=== PATIENT | male | born 1990 | race Caucasian/White ===

== ENCOUNTER 2018-11-16 20:56 | Emergency (ER) | payer BC ==
[2018-11-16 22:12] LABS: #Basophils 0.1 thou/uL (0.0-0.2); #Eosinphils 0.4 thou/uL (0.0-0.7); #Lymphocytes 2.7 thou/uL (1.20-3.40); #Monocytes 0.8 thou/uL (0.11-0.59); #Neutrophils 4.8 thou/uL (1.40-6.50); %Basophils 0.7 % (0.0-1.0); %Eosinophils 4.9 % (0.0-10.0); %Lymphocytes 30.9 % (21.0-51.0); %Neutrophils 54.5 % (42.0-75.0); Hemoglobin 15.8 g/dL (14.0-18.0); Mean Corpuscular HGB CONC 34.3 g/dL (32.0-36.0); Mean Corpuscular Hemoglobin 31.2 pg (27.0-31.0); Mean Platelet Volume 8.7 fL (7.4-10.4); Platelet Count 249 thou/uL (130-400); RBC Distribution Width 12.1 % (11.5-14.5); Red Blood Cell (RBC) Count 5.07 mill/uL (4.70-6.10); White Blood Cell (WBC) Count 8.8 thou/uL (4.8-10.8)
[2018-11-16 22:27] LABS: ALT (SGPT) 23 U/L (8-55); AST (SGOT) 21 U/L (5-34); Albumin 4.2 g/dL (3.5-5.0); Alkaline Phosphatase 68 U/L (40-150); Anion Gap 17 mmol/L (10-20); BUN (Urea Nitrogen) 12 mg/dL (8.9-20.6); Bilirubin, Total 0.2 mg/dL (0.2-1.2); CK (CPK) 71 U/L (30-200); Calc. Creatinine Clearance 0 mL/min (70-130); Calcium 9.6 mg/dL (7.8-10.44); Carbon Dioxide 20 mmol/L (22-29); Chloride 106 mmol/L (98-107); Estimated GFR-MDRD Greater than 90; Globulin 3.5 g/dL (2.4-3.5); Glucose 120 mg/dL (70-105); Potassium 3.9 mmol/L (3.5-5.1); Protein, Total 7.7 g/dL (6.0-8.3); Sodium 139 mmol/L (136-145)
[2018-11-16] MEDS ORDERED: Ondansetron ODT 8 MG TAB ONE ×2 (22:33→22:41)
[2018-11-16] MEDS ORDERED: Ondansetron PF 4 MG/2 ML Vial ONE (22:41)
== END 2018-11-17 00:10 | disposition home or self-care (01) ==
LOC: ERS 20:56
DX: K52.9 Noninfective gastroenteritis and colitis, unspecified (principal); E86.0 Dehydration; I10 Essential (primary) hypertension; F17.220 Nicotine dependence, chewing tobacco, uncomplicated; Z79.899 Other long term (current) drug therapy
CPT/HCPCS: 36415; 80053; 82550; 85025; 96361; 96374; J2405

== ENCOUNTER 2019-10-06 09:20 | Emergency (ER) | payer SELFPAY ==
[2019-10-06] MEDS ORDERED: Nitroglycerin 2% Ointment 1 INCH/1 GM Packet ONE (09:58)
[2019-10-06] MEDS ORDERED: Aspirin Chewable 81 MG TAB ONE (09:58)
[2019-10-06] MEDS ORDERED: Ondansetron PF 4 MG/2 ML Vial ONE (09:58)
[2019-10-06 10:03] LABS: Hemoglobin 15.7 g/dL (14.0-18.0); Mean Corpuscular HGB CONC 33.6 g/dL (32.0-36.0); Mean Corpuscular Volume 89.3 fL (78.0-98.0); Mean Platelet Volume 8.4 fL (7.4-10.4); Platelet Count 164 thou/uL (130-400); RBC Distribution Width 11.9 % (11.5-14.5); Red Blood Cell (RBC) Count 5.24 mill/uL (4.70-6.10); White Blood Cell (WBC) Count 5.2 thou/uL (4.8-10.8)
[2019-10-06 10:20] LABS: Band 3 % (5-11); Eosinophils 5 % (0-10); Lymphocytes 34 % (21-51); MDiff Complete? YES; Metamyelocyte 2 % (0-0); Monocytes 6 % (0-10); Neutrophil 32 % (42-75); Platelet Morphology Comment Appears Adequate; RBC Morphology Normal; Reactive Lymphocytes 18 % (0-10)
--- NOTE | 2019-10-06 10:21 | RAD ---
Exam: Chest one view HISTORY:Chest pain Comparison: 09/03/2010 FINDINGS: Cardiac silhouette: Normal Aorta: Unremarkable Pulmonary vessels: Normal Costophrenic angles: Clear LUNGS: No masses or consolidation. Pneumothorax: None Osseous abnormalities: None IMPRESSION: No acute cardiopulmonary process.
[2019-10-06 10:28] LABS: ALT (SGPT) 57 U/L (8-55); AST (SGOT) 34 U/L (5-34); Albumin 4.2 g/dL (3.5-5.0); Alkaline Phosphatase 78 U/L (40-110); Anion Gap 13 mmol/L (10-20); BUN (Urea Nitrogen) 16 mg/dL (8.9-20.6); Bilirubin, Total 0.6 mg/dL (0.2-1.2); CK (CPK) 39 U/L (30-200); Calc. Creatinine Clearance 0 mL/min (70-130); Calcium 9.4 mg/dL (7.8-10.44); Carbon Dioxide 24 mmol/L (22-29); Chloride 103 mmol/L (98-107); Estimated GFR-MDRD Greater than 90; Globulin 3.5 g/dL (2.4-3.5); Glucose 109 mg/dL (70-105); Lipase 54 U/L (8-78); Potassium 4.1 mmol/L (3.5-5.1); Protein, Total 7.7 g/dL (6.0-8.3); Sodium 136 mmol/L (136-145)
[2019-10-06 10:36] LABS: Bilirubin Negative (Negative); Blood, Urine Negative (Negative); Clarity Clear (Clear); Glucose, Urine (Dipstick) Normal (Negative); Ketone, Urine Negative (Negative); Leukocyte Negative Leu/uL (Negative); Nitrite Negative (Negative); Protein, Urine (Dipstick) 20 mg/dL (Neg-Trace); Specific Gravity, Urine 1.035 (1.002-1.036); Urobilinogen Normal mg/dL (Less than 2); pH, Urine 5.5 (5.0-9.0)
== END 2019-10-06 11:00 | disposition home or self-care (01) ==
LOC: ERS 09:20
DX: I10 Essential (primary) hypertension (principal); R07.9 Chest pain, unspecified; F17.220 Nicotine dependence, chewing tobacco, uncomplicated
CPT/HCPCS: 71045; 80053; 81003; 82550; 83690; 84484; 85025; 87086; 93005; 96361; 96374; J2405

== ENCOUNTER 2019-10-15 21:28 | Emergency (ER) | payer SELFPAY ==
[~2019-10-15 21:28] MED LIST: Iopamidol-370 76% 500 ML 1 ML ONE
[2019-10-15] MEDS ORDERED: Ketorolac Tromethamine 30 MG/ML VIAL ONE (22:48)
[2019-10-15] MEDS ORDERED: Ondansetron PF 4 MG/2 ML Vial ONE (22:48)
[2019-10-15 22:58] LABS: Hemoglobin 14.2 g/dL (14.0-18.0); Mean Corpuscular HGB CONC 33.4 g/dL (32.0-36.0); Mean Corpuscular Hemoglobin 30.6 pg (27.0-31.0); Mean Corpuscular Volume 91.7 fL (78.0-98.0); Mean Platelet Volume 7.6 fL (7.4-10.4); Platelet Count 189 thou/uL (130-400); RBC Distribution Width 12.2 % (11.5-14.5); Red Blood Cell (RBC) Count 4.64 mill/uL (4.70-6.10); White Blood Cell (WBC) Count 8.4 thou/uL (4.8-10.8)
[2019-10-15 23:08] LABS: ALT (SGPT) 76 U/L (8-55); AST (SGOT) 44 U/L (5-34); Alkaline Phosphatase 76 U/L (40-110); Anion Gap 12 mmol/L (10-20); BUN (Urea Nitrogen) 12 mg/dL (8.9-20.6); Bilirubin, Total 0.4 mg/dL (0.2-1.2); CK (CPK) 51 U/L (30-200); Calc. Creatinine Clearance 0 mL/min (70-130); Calcium 9.2 mg/dL (7.8-10.44); Carbon Dioxide 25 mmol/L (22-29); Chloride 104 mmol/L (98-107); Estimated GFR-MDRD 90; Globulin 3.3 g/dL (2.4-3.5); Glucose 96 mg/dL (70-105); Lipase 21 U/L (8-78); Potassium 4.3 mmol/L (3.5-5.1); Protein, Total 7.3 g/dL (6.0-8.3); Sodium 137 mmol/L (136-145)
[2019-10-15 23:13] LABS: Band 4 % (5-11); Eosinophils 4 % (0-10); Lymphocytes 55 % (21-51); MDiff Complete? YES; Monocytes 13 % (0-10); Neutrophil 23 % (42-75)
--- NOTE | 2019-10-16 00:28 | RAD ---
PORTABLE CHEST: Date: 10/15/2019 HISTORY: Cough. FINDINGS: Lungs are clear. Heart and mediastinum appear normal. Vascular markings normal. IMPRESSION: No acute findings. POS: AGW
--- NOTE | 2019-10-16 00:29 | CT ---
CT ABDOMEN AND PELVIS WITH IV CONTRAST: Date: 10/15/2019 INDICATION: Abdominal pain. Comparison made to prior CT abdomen and pelvis of 05/28/2011. FINDINGS: Lung bases clear. Liver unremarkable. There is splenomegaly. Spleen measures up to 20 cm AP dimension. Pancreas unremarkable. Adrenal glands normal. Kidneys unremarkable. Small bowel loops normal. The appendix is not identified. The patient may be post appendectomy. There is stool throughout the c olon. Scattered diverticula seen in the left colon and sigmoid. No evidence of diverticulitis. No shayne nopathy. No free fluid. Aorta appears normal. Osseous structures unremarkable. The umbilicus appears unremarkable by CT. IMPRESSION: 1. Splenomegaly. 2. Otherwise no acute process. POS: AGW
== END 2019-10-15 23:45 | disposition home or self-care (01) ==
LOC: ERS 21:28
DX: R16.1 Splenomegaly, not elsewhere classified (principal); R10.9 Unspecified abdominal pain; I10 Essential (primary) hypertension; F32.9 Major depressive disorder, single episode, unspecified; F90.9 Attention-deficit hyperactivity disorder, unspecified type; F17.220 Nicotine dependence, chewing tobacco, uncomplicated; Z79.899 Other long term (current) drug therapy
CPT/HCPCS: 36415; 71045; 74177; 80053; 82550; 83690; 84484; 85025; 93005; 96361; 96374; 96375; J1885; J2405; Q9967

== ENCOUNTER 2020-06-27 10:06 | Emergency (ER) | payer SELFPAY | END 2020-06-27 11:51 | disposition home or self-care (01) | LOC: ERS 10:06 | DX: M65.4 Radial styloid tenosynovitis [de Quervain] (principal); I10 Essential (primary) hypertension; F17.220 Nicotine dependence, chewing tobacco, uncomplicated; Z79.899 Other long term (current) drug therapy ==

== ENCOUNTER 2020-09-25 16:56 | Emergency (ER) | payer SELFPAY ==
[2020-09-25 17:50] LABS: #Basophils 0.1 thou/uL (0.0-0.2); #Eosinphils 0.3 thou/uL (0.0-0.7); #Lymphocytes 2.9 thou/uL (1.20-3.40); #Monocytes 0.9 thou/uL (0.11-0.59); %Basophils 1.1 % (0.0-1.0); %Eosinophils 3.3 % (0.0-10.0); %Lymphocytes 35.5 % (21.0-51.0); %Monocytes 11.4 % (0.0-10.0); %Neutrophils 48.8 % (42.0-75.0); Hemoglobin 14.8 g/dL (14.0-18.0); Mean Corpuscular HGB CONC 34.8 g/dL (32.0-36.0); Mean Corpuscular Hemoglobin 31.6 pg (27.0-31.0); Mean Corpuscular Volume 90.8 fL (78.0-98.0); Mean Platelet Volume 8.3 fL (7.4-10.4); Platelet Count 244 thou/uL (130-400); RBC Distribution Width 11.9 % (11.5-14.5); Red Blood Cell (RBC) Count 4.68 mill/uL (4.70-6.10); White Blood Cell (WBC) Count 8.2 thou/uL (4.8-10.8)
[2020-09-25 18:14] LABS: ALT (SGPT) 45 U/L (8-55); AST (SGOT) 35 U/L (5-34); Albumin 4.3 g/dL (3.5-5.0); Alkaline Phosphatase 74 U/L (40-110); Anion Gap 17 mmol/L (10-20); BUN (Urea Nitrogen) 15 mg/dL (8.9-20.6); Bilirubin, Total 0.3 mg/dL (0.2-1.2); Calc. Creatinine Clearance 0 mL/min (70-130); Calcium 9.7 mg/dL (7.8-10.44); Carbon Dioxide 20 mmol/L (22-29); Chloride 107 mmol/L (98-107); Globulin 3.2 g/dL (2.4-3.5); Glucose 116 mg/dL (70-105); Potassium 3.6 mmol/L (3.5-5.1); Protein, Total 7.5 g/dL (6.0-8.3); Sodium 140 mmol/L (136-145)
[2020-09-25] MEDS ORDERED: Aspirin Chewable 81 MG TAB ONE (18:37)
[2020-09-25 20:53] LABS: Troponin I Less than 0.010 ng/mL (< 0.028)
[2020-09-25] MEDS ORDERED: Ketorolac Tromethamine 30 MG/ML VIAL ONE (21:21)
== END 2020-09-25 21:50 | disposition home or self-care (01) ==
LOC: ERS 16:56
DX: T67.5XXA Heat exhaustion, unspecified, initial encounter (principal); R07.89 Other chest pain; I10 Essential (primary) hypertension; F17.220 Nicotine dependence, chewing tobacco, uncomplicated; Z79.899 Other long term (current) drug therapy
CPT/HCPCS: 36415; 71045; 80053; 82550; 84484; 85025; 93005; 96374; J1885

== ENCOUNTER 2020-11-19 07:44 | Emergency (ER) | payer SELFPAY ==
[2020-11-19] MEDS ORDERED: Ketorolac Tromethamine 30 MG/ML VIAL ONE (08:43)
[2020-11-19 08:49] LABS: #Basophils 0.1 thou/uL (0.0-0.2); #Eosinphils 0.3 thou/uL (0.0-0.7); #Lymphocytes 2.5 thou/uL (1.20-3.40); #Monocytes 0.8 thou/uL (0.11-0.59); #Neutrophils 2.8 thou/uL (1.40-6.50); %Basophils 0.8 % (0.0-1.0); %Lymphocytes 38.4 % (21.0-51.0); %Monocytes 12.3 % (0.0-10.0); %Neutrophils 44.4 % (42.0-75.0); Hemoglobin 14.9 g/dL (14.0-18.0); Mean Corpuscular HGB CONC 33.4 g/dL (32.0-36.0); Mean Corpuscular Hemoglobin 30.5 pg (27.0-31.0); Mean Corpuscular Volume 91.4 fL (78.0-98.0); Mean Platelet Volume 7.8 fL (7.4-10.4); Platelet Count 234 thou/uL (130-400); RBC Distribution Width 11.6 % (11.5-14.5); Red Blood Cell (RBC) Count 4.87 mill/uL (4.70-6.10); White Blood Cell (WBC) Count 6.4 thou/uL (4.8-10.8)
[2020-11-19 09:13] LABS: ALT (SGPT) 26 U/L (8-55); AST (SGOT) 14 U/L (5-34); Alkaline Phosphatase 72 U/L (40-110); Anion Gap 12 mmol/L (10-20); BUN (Urea Nitrogen) 11 mg/dL (8.9-20.6); Bilirubin, Total 0.3 mg/dL (0.2-1.2); Calc. Creatinine Clearance 0 mL/min (70-130); Calcium 9.3 mg/dL (7.8-10.44); Carbon Dioxide 25 mmol/L (22-29); Chloride 104 mmol/L (98-107); Globulin 3.4 g/dL (2.4-3.5); Glucose 103 mg/dL (70-105); Lipase 10 U/L (8-78); Potassium 4.2 mmol/L (3.5-5.1); Protein, Total 7.4 g/dL (6.0-8.3); Sodium 137 mmol/L (136-145)
== END 2020-11-19 10:09 | disposition home or self-care (01) ==
LOC: ERS 07:44
DX: R07.89 Other chest pain (principal); Z76.0 Encounter for issue of repeat prescription; I10 Essential (primary) hypertension; F17.220 Nicotine dependence, chewing tobacco, uncomplicated
CPT/HCPCS: 71045; 80053; 83690; 84484; 85025; 93005; 94760; 96374; J1885

== ENCOUNTER 2021-03-25 11:17 | Emergency (ER) | payer SELFPAY ==
[2021-03-25] MEDS ORDERED: Acetaminophen 500 MG TAB ONE (11:28)
[2021-03-25] MEDS ORDERED: Ibuprofen 800 MG TAB ONE (11:28)
[2021-03-25] MEDS ORDERED: Dexamethasone 10 MG/ML VIAL ONE (11:52)
[2021-03-25 12:02] LABS: Hemoglobin 15.9 g/dL (14.0-18.0); Mean Corpuscular HGB CONC 34.2 g/dL (32.0-36.0); Mean Corpuscular Hemoglobin 31.3 pg (27.0-31.0); Mean Corpuscular Volume 91.5 fL (78.0-98.0); Mean Platelet Volume 7.9 fL (7.4-10.4); Platelet Count 211 thou/uL (130-400); RBC Distribution Width 11.9 % (11.5-14.5); Red Blood Cell (RBC) Count 5.08 mill/uL (4.70-6.10); White Blood Cell (WBC) Count 7.9 thou/uL (4.8-10.8)
[2021-03-25 12:22] LABS: Band 14 % (5-11); Lymphocytes 19 % (21-51); MDiff Complete? YES; Monocytes 20 % (0-10); Neutrophil 38 % (42-75); Platelet Morphology Comment Appears Adequate; RBC Morphology Normal; Reactive Lymphocytes 9 % (0-10)
[2021-03-25 12:27] LABS: ALT (SGPT) 22 U/L (8-55); AST (SGOT) 18 U/L (5-34); Albumin 4.2 g/dL (3.5-5.0); Alkaline Phosphatase 73 U/L (40-110); Anion Gap 14 mmol/L (10-20); BUN (Urea Nitrogen) 10 mg/dL (8.9-20.6); Bilirubin, Total 0.4 mg/dL (0.2-1.2); CK (CPK) 64 U/L (30-200); Calc. Creatinine Clearance 0 mL/min (70-130); Calcium 9.4 mg/dL (7.8-10.44); Carbon Dioxide 23 mmol/L (22-29); Chloride 102 mmol/L (98-107); Globulin 3.3 g/dL (2.4-3.5); Glucose 105 mg/dL (70-105); Lipase 11 U/L (8-78); Potassium 4.3 mmol/L (3.5-5.1); Protein, Total 7.5 g/dL (6.0-8.3); Sodium 135 mmol/L (136-145)
[2021-03-25 17:42] LABS: SARS-CoV-2 PCR by NAA Not Detected (NotDetected)
== END 2021-03-25 13:58 | disposition home or self-care (01) ==
LOC: ERS 11:17
DX: R05.9 Cough, unspecified (principal); I10 Essential (primary) hypertension; J45.909 Unspecified asthma, uncomplicated; F17.220 Nicotine dependence, chewing tobacco, uncomplicated; Z20.822 Contact with and (suspected) exposure to COVID-19; Z79.899 Other long term (current) drug therapy
CPT/HCPCS: 36415; 71045; 80053; 82550; 83605; 83690; 83880; 84484; 85025; 85379; 87040; 87804; 93005; 96374; J1100; U0003; U0005

== ENCOUNTER 2021-08-13 09:25 | Emergency (ER) | payer SELFPAY ==
[2021-08-13 11:28] LABS: #Basophils 0.1 thou/uL (0.0-0.2); #Eosinphils 0.3 thou/uL (0.0-0.7); #Lymphocytes 2.5 thou/uL (1.20-3.40); #Monocytes 0.7 thou/uL (0.11-0.59); #Neutrophils 3.1 thou/uL (1.40-6.50); %Eosinophils 4.2 % (0.0-10.0); %Lymphocytes 37.8 % (21.0-51.0); %Monocytes 10.2 % (0.0-10.0); %Neutrophils 46.8 % (42.0-75.0); Hemoglobin 16.2 g/dL (14.0-18.0); Mean Corpuscular Hemoglobin 30.9 pg (27.0-31.0); Mean Corpuscular Volume 93.8 fL (78.0-98.0); Mean Platelet Volume 8.3 fL (7.4-10.4); Platelet Count 222 thou/uL (130-400); RBC Distribution Width 11.9 % (11.5-14.5); Red Blood Cell (RBC) Count 5.25 mill/uL (4.70-6.10); White Blood Cell (WBC) Count 6.6 thou/uL (4.8-10.8)
[2021-08-13] MEDS ORDERED: Ondansetron PF 4 MG/2 ML Vial ONE (11:43)
[2021-08-13] MEDS ORDERED: Ketorolac Tromethamine 30 MG/ML VIAL ONE (11:43)
[2021-08-13 11:49] LABS: ALT (SGPT) 27 U/L (8-55); AST (SGOT) 20 U/L (5-34); Albumin 4.2 g/dL (3.5-5.0); Alkaline Phosphatase 70 U/L (40-110); Anion Gap 15 mmol/L (10-20); BUN (Urea Nitrogen) 15 mg/dL (8.9-20.6); Bilirubin, Total 0.6 mg/dL (0.2-1.2); Calc. Creatinine Clearance 0 mL/min (70-130); Calcium 9.8 mg/dL (7.8-10.44); Carbon Dioxide 25 mmol/L (22-29); Chloride 103 mmol/L (98-107); Globulin 3.6 g/dL (2.4-3.5); Glucose 88 mg/dL (70-105); Lipase 12 U/L (8-78); Potassium 4.6 mmol/L (3.5-5.1); Protein, Total 7.8 g/dL (6.0-8.3); Sodium 138 mmol/L (136-145)
== END 2021-08-13 13:20 | disposition home or self-care (01) ==
LOC: ERS 09:25
DX: R11.2 Nausea with vomiting, unspecified (principal); I10 Essential (primary) hypertension; F17.220 Nicotine dependence, chewing tobacco, uncomplicated; Z79.899 Other long term (current) drug therapy
CPT/HCPCS: 36415; 80053; 83690; 85025; 87804; 96361; 96374; 96375; J1885; J2405

== ENCOUNTER 2022-01-13 13:43 | Emergency (ER) | payer SELFPAY ==
[2022-01-13 14:21] LABS: #Basophils 0.1 thou/uL (0.0-0.2); #Eosinphils 0.3 thou/uL (0.0-0.7); #Lymphocytes 2.9 thou/uL (1.20-3.40); #Neutrophils 3.7 thou/uL (1.40-6.50); %Basophils 0.6 % (0.0-1.0); %Lymphocytes 36.1 % (21.0-51.0); %Monocytes 12.3 % (0.0-10.0); Hemoglobin 15.4 g/dL (14.0-18.0); Mean Corpuscular HGB CONC 32.9 g/dL (32.0-36.0); Mean Corpuscular Hemoglobin 30.9 pg (27.0-31.0); Mean Corpuscular Volume 93.7 fL (78.0-98.0); Mean Platelet Volume 8.6 fL (7.4-10.4); Platelet Count 245 thou/uL (130-400); RBC Distribution Width 11.9 % (11.5-14.5); Red Blood Cell (RBC) Count 4.99 mill/uL (4.70-6.10)
[2022-01-13 14:49] LABS: ALT (SGPT) 49 U/L (8-55); AST (SGOT) 30 U/L (5-34); Albumin 4.3 g/dL (3.5-5.0); Alkaline Phosphatase 59 U/L (40-110); Anion Gap 11 mmol/L (10-20); BUN (Urea Nitrogen) 17 mg/dL (8.9-20.6); Bilirubin, Total 0.4 mg/dL (0.2-1.2); Calc. Creatinine Clearance 0 mL/min (70-130); Calcium 9.6 mg/dL (7.8-10.44); Carbon Dioxide 26 mmol/L (22-29); Chloride 104 mmol/L (98-107); Estimated GFR 110; Globulin 3.3 g/dL (2.4-3.5); Glucose 97 mg/dL (70-105); Lipase 12 U/L (8-78); Potassium 4.7 mmol/L (3.5-5.1); Protein, Total 7.6 g/dL (6.0-8.3); Sodium 136 mmol/L (136-145)
[2022-01-13] MEDS ORDERED: Iopamidol 370 76% 100 ML VIAL ONE (14:56)
[2022-01-13 18:12] LABS: Bacteria/HPF None Seen HPF (None Seen); Bilirubin Negative (Negative); Blood, Urine Negative (Negative); Clarity Clear (Clear); Glucose, Urine (Dipstick) Normal (Negative); Ketone, Urine Negative (Negative); Leukocyte 25 Leu/uL (Negative); Nitrite Negative (Negative); Protein, Urine (Dipstick) Negative (Neg-Trace); RBC/HPF 0-3 HPF (0-3); Specific Gravity, Urine 1.027 (1.002-1.036); Squamous Epithelial 0-3 HPF (0-3); Urobilinogen Normal mg/dL (Less than 2)
[2022-01-13] MEDS ORDERED: Ondansetron PF 4 MG/2 ML Vial ONE (18:28)
[2022-01-13] MEDS ORDERED: Morphine 4 MG/ML VIAL ONE (18:28)
[2022-01-13] MEDS ORDERED: Promethazine HCl 12.5 MG in Sodium Chloride 0.9% 50 ML IVPB SCH (19:45)
== END 2022-01-13 19:57 | disposition home or self-care (01) ==
LOC: ERS 13:43
DX: K57.30 Diverticulosis of large intestine without perforation or abscess without bleeding (principal); K76.0 Fatty (change of) liver, not elsewhere classified; L98.8 Other specified disorders of the skin and subcutaneous tissue; Z79.899 Other long term (current) drug therapy; I10 Essential (primary) hypertension
CPT/HCPCS: 36415; 74177; 76705; 80053; 81003; 81015; 83690; 85025; 96361; 96374; 96375; J2270; J2405; J2550; Q9967

== ENCOUNTER 2022-09-10 08:46 | Emergency (ER) | payer OTHER ==
[2022-09-10] MEDS ORDERED: diphenhydrAMINE 50 MG/ML VIAL ONE (09:27)
[2022-09-10] MEDS ORDERED: Metoclopramide HCl 10 MG/2 ML VIAL ONE (09:27)
[2022-09-10 09:51] LABS: #Basophils 0.1 thou/uL (0.0-0.2); #Eosinphils 0.2 thou/uL (0.0-0.7); #Monocytes 0.8 thou/uL (0.11-0.59); #Neutrophils 3.8 thou/uL (1.40-6.50); %Basophils 0.7 % (0.0-1.0); %Eosinophils 3.1 % (0.0-10.0); %Lymphocytes 28.5 % (21.0-51.0); %Monocytes 11.1 % (0.0-10.0); Hemoglobin 15.6 g/dL (14.0-18.0); Mean Corpuscular HGB CONC 33.1 g/dL (32.0-36.0); Mean Corpuscular Hemoglobin 29.8 pg (27.0-31.0); Mean Corpuscular Volume 90.1 fl (78.0-98.0); Mean Platelet Volume 10.2 fL (7.4-10.4); Platelet Count 310 10x3/uL (130-400); RBC Distribution Width 12.3 % (11.5-14.5); Red Blood Cell (RBC) Count 5.23 mill/uL (4.70-6.10); White Blood Cell (WBC) Count 6.8 10x3/uL (4.8-10.8)
[2022-09-10 09:57] LABS: Amphetamine Not Detected (NotDetected); Barbiturates Screen Not Detected (NotDetected); Benzodiazepine Screen Not Detected (NotDetected); Cocaine Metabolite Screen Not Detected (NotDetected); Methadone Not Detected (NotDetected); Methamphetamine Not Detected (NotDetected); Opiate Screen Not Detected (NotDetected); Oxycodone Screen Not Detected (NotDetected); Phencyclidine (PCP) Not Detected (NotDetected); THC/Cannabinoid Screen Detected (NotDetected); Tricyclic Screen Not Detected (NotDetected)
[2022-09-10 10:14] LABS: ALT (SGPT) 59 U/L (8-55); AST (SGOT) 36 U/L (5-34); Albumin 4.3 g/dL (3.5-5.0); Alkaline Phosphatase 77 U/L (40-110); Anion Gap 14 mmol/L (10-20); BUN (Urea Nitrogen) 10 mg/dL (8.9-20.6); Bilirubin, Total 0.4 mg/dL (0.2-1.2); Calc. Creatinine Clearance 0 mL/min (70-130); Calcium 10.2 mg/dL (7.8-10.44); Carbon Dioxide 27 mmol/L (22-29); Chloride 99 mmol/L (98-107); Estimated GFR 119; Globulin 3.5 g/dL (2.4-3.5); Glucose 106 mg/dL (70-105); Lipase 9 U/L (8-78); Potassium 3.5 mmol/L (3.5-5.1); Protein, Total 7.8 g/dL (6.0-8.3); Sodium 136 mmol/L (136-145)
[2022-09-10] MEDS ORDERED: Magnesium 2 GM/50 ML BAG (IN WATER) ONE (10:54)
[2022-09-10] MEDS ORDERED: Acetaminophen 500 MG TAB ONE (10:54)
== END 2022-09-10 13:47 | disposition home or self-care (01) ==
LOC: ERS 08:46
DX: R51.9 Headache, unspecified (principal); R00.2 Palpitations; I10 Essential (primary) hypertension; F17.210 Nicotine dependence, cigarettes, uncomplicated; Z79.899 Other long term (current) drug therapy
CPT/HCPCS: 36415; 71045; 80053; 80306; 83690; 84436; 84443; 84480; 84484; 85025; 93005; 96365; 96367; 96375; J1200; J2765; J3475

== ENCOUNTER 2022-11-03 09:26 | Emergency (ER) | payer OTHER ==
[2022-11-03] MEDS ORDERED: Ketorolac Tromethamine 30 MG/ML VIAL ONE (10:11)
[2022-11-03 10:16] LABS: ALT (SGPT) 38 U/L (8-55); AST (SGOT) 23 U/L (5-34); Albumin 4.2 g/dL (3.5-5.0); Alkaline Phosphatase 72 U/L (40-110); Anion Gap 13 mmol/L (10-20); BUN (Urea Nitrogen) 17 mg/dL (8.9-20.6); Bilirubin, Total 0.5 mg/dL (0.2-1.2); Calc. Creatinine Clearance 0 mL/min (70-130); Calcium 9.7 mg/dL (7.8-10.44); Carbon Dioxide 23 mmol/L (22-29); Chloride 101 mmol/L (98-107); Estimated GFR 89; Globulin 3.4 g/dL (2.4-3.5); Glucose 95 mg/dL (70-105); Potassium 3.5 mmol/L (3.5-5.1); Protein, Total 7.6 g/dL (6.0-8.3); Sodium 133 mmol/L (136-145)
[2022-11-03 10:18] LABS: #Basophils 0.1 thou/uL (0.0-0.2); #Eosinphils 0.2 thou/uL (0.0-0.7); #Monocytes 0.9 thou/uL (0.11-0.59); #Neutrophils 3.3 thou/uL (1.40-6.50); %Basophils 0.7 % (0.0-1.0); %Eosinophils 2.7 % (0.0-10.0); %Lymphocytes 36.6 % (21.0-51.0); %Monocytes 12.3 % (0.0-10.0); %Neutrophils 47.3 % (42.0-75.0); Hematocrit 44.7 % (42.0-52.0); Hemoglobin 15.1 g/dL (14.0-18.0); Mean Corpuscular HGB CONC 33.8 g/dL (32.0-36.0); Mean Corpuscular Hemoglobin 29.7 pg (27.0-31.0); Mean Corpuscular Volume 87.8 fl (78.0-98.0); Mean Platelet Volume 10.5 fL (7.4-10.4); Platelet Count 282 10x3/uL (130-400); Red Blood Cell (RBC) Count 5.09 mill/uL (4.70-6.10); White Blood Cell (WBC) Count 7.1 10x3/uL (4.8-10.8)
[2022-11-03 12:18] LABS: Troponin I Less than 0.010 ng/mL (< 0.028)
== END 2022-11-03 12:38 | disposition home or self-care (01) ==
LOC: ERS 09:26
DX: R07.9 Chest pain, unspecified (principal); R42 Dizziness and giddiness; I10 Essential (primary) hypertension; F17.210 Nicotine dependence, cigarettes, uncomplicated
CPT/HCPCS: 36415; 71045; 80053; 84484; 85025; 85379; 93005; 94760; 96361; 96374; J1885

== ENCOUNTER 2022-11-17 09:28 | Observation (INO) | payer OTHER ==
[2022-11-17] MEDS ORDERED: Aspirin 325 MG TAB ONE (09:50)
[2022-11-17] MEDS ORDERED: Nitroglycerin 0.4 MG TAB 1 EACH ONE ×2 (09:50→09:51)
[2022-11-17 09:52] LABS: #Basophils 0.1 thou/uL (0.0-0.2); #Eosinphils 0.2 thou/uL (0.0-0.7); #Monocytes 0.8 thou/uL (0.11-0.59); #Neutrophils 3.6 thou/uL (1.40-6.50); %Basophils 0.7 % (0.0-1.0); %Eosinophils 2.7 % (0.0-10.0); %Lymphocytes 35.5 % (21.0-51.0); %Monocytes 10.9 % (0.0-10.0); %Neutrophils 49.8 % (42.0-75.0); Hematocrit 46.2 % (42.0-52.0); Hemoglobin 15.4 g/dL (14.0-18.0); Mean Corpuscular HGB CONC 33.3 g/dL (32.0-36.0); Mean Corpuscular Hemoglobin 30.1 pg (27.0-31.0); Mean Corpuscular Volume 90.2 fl (78.0-98.0); Mean Platelet Volume 10.4 fL (7.4-10.4); Platelet Count 296 10x3/uL (130-400); RBC Distribution Width 12.9 % (11.5-14.5); Red Blood Cell (RBC) Count 5.12 mill/uL (4.70-6.10); White Blood Cell (WBC) Count 7.2 10x3/uL (4.8-10.8)
[2022-11-17 10:15] LABS: ALT (SGPT) 26 U/L (8-55); AST (SGOT) 18 U/L (5-34); Albumin 4.5 g/dL (3.5-5.0); Alkaline Phosphatase 74 U/L (40-110); Anion Gap 13 mmol/L (10-20); BUN (Urea Nitrogen) 16 mg/dL (8.9-20.6); Bilirubin, Total 0.3 mg/dL (0.2-1.2); Calc. Creatinine Clearance 0 mL/min (70-130); Calcium 10.1 mg/dL (7.8-10.44); Carbon Dioxide 22 mmol/L (22-29); Chloride 106 mmol/L (98-107); Estimated GFR 108; Globulin 3.7 g/dL (2.4-3.5); Glucose 98 mg/dL (70-105); Lipase 7 U/L (8-78); Potassium 3.9 mmol/L (3.5-5.1); Protein, Total 8.2 g/dL (6.0-8.3); Sodium 137 mmol/L (136-145)
[2022-11-17 10:19] LABS: Troponin I Less than 0.010 ng/mL (< 0.028)
[2022-11-17] MEDS ORDERED: Iopamidol-370 76% 500 ML MDV (1 ML CHARGE) ONE (11:14)
[2022-11-17] MEDS ORDERED: Ondansetron PF 4 MG/2 ML Vial IVP PRN (11:33)
[2022-11-17] MEDS ORDERED: Senokot S 8.6-50 MG TAB PO PRN (11:33)
[2022-11-17] MEDS ORDERED: Acetaminophen 325 MG TAB PO PRN (11:33)
[2022-11-17] MEDS ORDERED: Bisacodyl 5 MG TAB PO PRN (11:33)
[2022-11-17] MEDS ORDERED: Bisacodyl 10 MG SUPP PR PRN (11:33)
[2022-11-17] MEDS ORDERED: Nitroglycerin 2% Ointment 1 INCH/1 GM Packet ONE (11:52)
[2022-11-17] MEDS: Sodium Chloride 0.9% 1,000 ML IV SCH ×2 (13:19→20:08)
[2022-11-17 14:15] LABS: Troponin I Less than 0.010 ng/mL (< 0.028)
[2022-11-17 17:41] LABS: Amphetamine Not Detected (NotDetected); Barbiturates Screen Not Detected (NotDetected); Benzodiazepine Screen Not Detected (NotDetected); Cocaine Metabolite Screen Not Detected (NotDetected); Methadone Not Detected (NotDetected); Methamphetamine Not Detected (NotDetected); Opiate Screen Not Detected (NotDetected); Oxycodone Screen Not Detected (NotDetected); Phencyclidine (PCP) Not Detected (NotDetected); THC/Cannabinoid Screen Detected (NotDetected); Tricyclic Screen Not Detected (NotDetected)
[2022-11-17 18:11] LABS: Troponin I Less than 0.010 ng/mL (< 0.028)
[2022-11-17] MEDS ORDERED: Atorvastatin Calcium 40 MG TAB PO SCH (21:00)
[2022-11-17 21:36] VITALS: BMI 48.6
[2022-11-18 05:34] LABS: #Basophils 0.1 thou/uL (0.0-0.2); #Eosinphils 0.3 thou/uL (0.0-0.7); #Monocytes 0.8 thou/uL (0.11-0.59); #Neutrophils 3.3 thou/uL (1.40-6.50); %Basophils 0.9 % (0.0-1.0); %Eosinophils 3.7 % (0.0-10.0); %Lymphocytes 36.3 % (21.0-51.0); %Monocytes 11.1 % (0.0-10.0); %Neutrophils 47.6 % (42.0-75.0); Hematocrit 42.2 % (42.0-52.0); Mean Corpuscular HGB CONC 33.2 g/dL (32.0-36.0); Mean Corpuscular Hemoglobin 30.6 pg (27.0-31.0); Mean Corpuscular Volume 92.1 fl (78.0-98.0); Mean Platelet Volume 10.6 fL (7.4-10.4); Platelet Count 232 10x3/uL (130-400); Red Blood Cell (RBC) Count 4.58 mill/uL (4.70-6.10)
[2022-11-18 05:40] LABS: Hemoglobin A1c 5.6 % (4.0-6.0)
[2022-11-18 06:03] LABS: ALT (SGPT) 20 U/L (8-55); AST (SGOT) 17 U/L (5-34); Albumin 3.7 g/dL (3.5-5.0); Alkaline Phosphatase 59 U/L (40-110); Anion Gap 12 mmol/L (10-20); BUN (Urea Nitrogen) 13 mg/dL (8.9-20.6); Bilirubin, Direct 0.2 mg/dL (0.1-0.3); Bilirubin, Total 0.4 mg/dL (0.2-1.2); Calc. Creatinine Clearance 342 mL/min (70-130); Calcium 9.2 mg/dL (7.8-10.44); Carbon Dioxide 23 mmol/L (22-29); Cardiac Risk 6.9 (Less than 4.5); Chloride 103 mmol/L (98-107); Cholesterol 179 mg/dl (< 200 Desired); Estimated GFR 122; Glucose 98 mg/dL (70-105); HDL Cholesterol 26 mg/dL (>60 Neg Risk); LDL Cholesterol, Calculated 122 mg/dL; Magnesium 1.6 mg/dL (1.6-2.6); Potassium 3.9 mmol/L (3.5-5.1); Protein, Total 6.6 g/dL (6.0-8.3); Sodium 134 mmol/L (136-145); Triglycerides 155 mg/dL (Less than 150)
[2022-11-18] MEDS ORDERED: Hydrochlorothiazide 25 MG TAB PO SCH (09:00)
[2022-11-18] MEDS ORDERED: Losartan 25 MG TAB PO SCH (09:00)
[2022-11-18] MEDS ORDERED: Aspirin Chewable 81 MG TAB PO SCH (09:00)
[2022-11-18] MEDS ORDERED: Losartan/Hydrochlorothiazide 100 mg/25 mg Tablet PO SCH (09:00)
[2022-11-18] MEDS ORDERED: Regadenoson 0.4 MG/5 ML SYRINGE ONE (10:26)
[2022-11-18 12:04] VITALS: BP 147/84; TEMP 98.6
[2022-11-18] MEDS: Sodium Chloride 0.9% 1,000 ML IV SCH (13:42)
== END 2022-11-18 14:10 | disposition left against medical advice (07) ==
LOC: ERS 09:28 → ERHOLD 11:33 → 2SW 19:01
PROVIDERS: ADMIT Family Medicine; ATTEND Internal Medicine
DX: R07.9 Chest pain, unspecified (principal); I10 Essential (primary) hypertension; R51.9 Headache, unspecified; R20.0 Anesthesia of skin; F17.210 Nicotine dependence, cigarettes, uncomplicated; F12.10 Cannabis abuse, uncomplicated; E78.5 Hyperlipidemia, unspecified; E66.9 Obesity, unspecified; Z68.42 Body mass index [BMI] 45.0-49.9, adult; Z79.899 Other long term (current) drug therapy; Z90.49 Acquired absence of other specified parts of digestive tract
CPT/HCPCS: 36415; 70450; 71045; 71275; 74174; 78451; 80048; 80053; 80061; 80076; 80306; 83036; 83690; 83735; 84443; 84484; 85025; 85379; 93005; 93017; 94760; A9500; G0378; J2785; J7050; Q9967

== ENCOUNTER 2023-01-15 10:57 | Inpatient (IN) | payer OTHER ==
[2023-01-15] MEDS ORDERED: Nitroglycerin 0.4 MG TAB (25 Tab Bottle) SL PRN (15:44)
[2023-01-15] MEDS ORDERED: Ondansetron PF 4 MG/2 ML Vial IVP PRN (15:44)
[2023-01-15] MEDS ORDERED: Senokot S 8.6-50 MG TAB PO PRN (15:44)
[2023-01-15] MEDS ORDERED: Acetaminophen 325 MG TAB PO PRN (15:44)
[2023-01-15 16:00] VITALS: BMI 49.8
[2023-01-15] MEDS: Metoprolol Tartrate 25 MG TAB PO SCH (20:01)
[2023-01-15] MEDS: Atorvastatin Calcium 40 MG TAB PO SCH (20:02)
[2023-01-15] MEDS: Famotidine 20 MG TAB PO SCH (20:02)
[2023-01-16 04:46] LABS: #Basophils 0.1 thou/uL (0.0-0.2); #Eosinphils 0.2 thou/uL (0.0-0.7); #Monocytes 0.8 thou/uL (0.11-0.59); #Neutrophils 3.4 thou/uL (1.40-6.50); %Basophils 0.8 % (0.0-1.0); %Eosinophils 3.1 % (0.0-10.0); %Lymphocytes 39.3 % (21.0-51.0); %Monocytes 10.5 % (0.0-10.0); Hematocrit 45.8 % (42.0-52.0); Hemoglobin 15.3 g/dL (14.0-18.0); Mean Corpuscular HGB CONC 33.4 g/dL (32.0-36.0); Mean Corpuscular Hemoglobin 29.9 pg (27.0-31.0); Mean Corpuscular Volume 89.5 fl (78.0-98.0); Mean Platelet Volume 10.4 fL (7.4-10.4); Platelet Count 250 10x3/uL (130-400); RBC Distribution Width 12.4 % (11.5-14.5); Red Blood Cell (RBC) Count 5.12 mill/uL (4.70-6.10); White Blood Cell (WBC) Count 7.5 10x3/uL (4.8-10.8)
[2023-01-16 05:12] LABS: Anion Gap 12 mmol/L (10-20); BUN (Urea Nitrogen) 12 mg/dL (8.9-20.6); Calc. Creatinine Clearance 356 mL/min (70-130); Calcium 9.5 mg/dL (7.8-10.44); Carbon Dioxide 28 mmol/L (22-29); Chloride 101 mmol/L (98-107); Estimated GFR 123; Glucose 102 mg/dL (70-105); Potassium 3.3 mmol/L (3.5-5.1); Sodium 138 mmol/L (136-145)
[2023-01-16] MEDS ORDERED: Regadenoson 0.4 MG/5 ML SYRINGE ONE (09:53)
[2023-01-16] MEDS: Ondansetron ODT 4 MG TAB PO PRN (10:04)
[2023-01-16] MEDS: Aspirin Chewable 81 MG TAB PO SCH (10:04)
[2023-01-16] MEDS: Famotidine 20 MG TAB PO SCH ×2 (10:04→20:08)
[2023-01-16] MEDS: Metoprolol Tartrate 25 MG TAB PO SCH ×2 (10:07→20:08)
[2023-01-16] MEDS: Losartan 25 MG TAB PO SCH (10:07)
[2023-01-16 17:06] LABS: Amphetamine Not Detected (NotDetected); Barbiturates Screen Not Detected (NotDetected); Benzodiazepine Screen Not Detected (NotDetected); Cocaine Metabolite Screen Not Detected (NotDetected); Methadone Not Detected (NotDetected); Methamphetamine Not Detected (NotDetected); Opiate Screen Detected (NotDetected); Oxycodone Screen Not Detected (NotDetected); Phencyclidine (PCP) Not Detected (NotDetected); THC/Cannabinoid Screen Detected (NotDetected); Tricyclic Screen Not Detected (NotDetected)
[2023-01-16] MEDS: Atorvastatin Calcium 40 MG TAB PO SCH (20:08)
[2023-01-17] MEDS: Aspirin Chewable 81 MG TAB PO SCH (09:36)
[2023-01-17] MEDS: Famotidine 20 MG TAB PO SCH ×2 (09:36→22:02)
[2023-01-17] MEDS: Ondansetron ODT 4 MG TAB PO PRN (09:36)
[2023-01-17] MEDS: Metoprolol Tartrate 25 MG TAB PO SCH ×2 (09:36→22:03)
[2023-01-17] MEDS: Losartan 25 MG TAB PO SCH (09:37)
[2023-01-17] MEDS: Atorvastatin Calcium 40 MG TAB PO SCH (22:03)
[2023-01-18] MEDS: Losartan 25 MG TAB PO SCH (09:38)
[2023-01-18] MEDS: Famotidine 20 MG TAB PO SCH ×2 (09:38→20:15)
[2023-01-18] MEDS: Metoprolol Tartrate 25 MG TAB PO SCH ×2 (09:38→20:15)
[2023-01-18] MEDS: Aspirin Chewable 81 MG TAB PO SCH (09:38)
[2023-01-18] MEDS: Atorvastatin Calcium 40 MG TAB PO SCH (20:15)
[2023-01-19] MEDS: Famotidine 20 MG TAB PO SCH (08:09)
[2023-01-19] MEDS: Losartan 25 MG TAB PO SCH (08:09)
[2023-01-19] MEDS: Aspirin Chewable 81 MG TAB PO SCH (08:09)
[2023-01-19] MEDS: Metoprolol Tartrate 25 MG TAB PO SCH (08:10)
[2023-01-19 11:50] VITALS: BP 133/76; TEMP 98.1
== END 2023-01-19 14:22 | disposition home or self-care (01) | DRG 313 ==
LOC: 2SW 15:39 → OBSVTOIN 01-17 18:32
PROVIDERS: ADMIT Internal Medicine; ATTEND Family Medicine
DX: R07.9 Chest pain, unspecified (principal); Z68.42 Body mass index [BMI] 45.0-49.9, adult; I10 Essential (primary) hypertension; F12.90 Cannabis use, unspecified, uncomplicated; E66.9 Obesity, unspecified; I08.1 Rheumatic disorders of both mitral and tricuspid valves; F41.9 Anxiety disorder, unspecified; F32.A Depression, unspecified; G47.00 Insomnia, unspecified; E87.6 Hypokalemia
CPT/HCPCS: 36415; 78452; 80048; 80306; 83735; 83880; 85025; 93017; 93306; 94760; 96372; A9500; G0378; J1650; J2785; Q0162

== ENCOUNTER 2023-02-25 10:50 | Emergency (ER) | payer OTHER ==
[2023-02-25 11:19] LABS: #Eosinphils 0.2 thou/uL (0.0-0.7); #Monocytes 0.7 thou/uL (0.11-0.59); #Neutrophils 3.5 thou/uL (1.40-6.50); %Basophils 0.6 % (0.0-1.0); %Lymphocytes 33.2 % (21.0-51.0); %Monocytes 10.5 % (0.0-10.0); %Neutrophils 52.3 % (42.0-75.0); Hematocrit 46.1 % (42.0-52.0); Hemoglobin 15.4 g/dL (14.0-18.0); Mean Corpuscular HGB CONC 33.4 g/dL (32.0-36.0); Mean Corpuscular Hemoglobin 30.2 pg (27.0-31.0); Mean Corpuscular Volume 90.4 fl (78.0-98.0); Mean Platelet Volume 10.6 fL (7.4-10.4); Platelet Count 272 10x3/uL (130-400); RBC Distribution Width 12.5 % (11.5-14.5); White Blood Cell (WBC) Count 6.7 10x3/uL (4.8-10.8)
[2023-02-25 11:48] LABS: ALT (SGPT) 22 U/L (8-55); AST (SGOT) 15 U/L (5-34); Albumin 4.3 g/dL (3.5-5.0); Alkaline Phosphatase 74 U/L (40-110); Anion Gap 13 mmol/L (10-20); BUN (Urea Nitrogen) 9 mg/dL (8.9-20.6); Bilirubin, Total 0.3 mg/dL (0.2-1.2); Calc. Creatinine Clearance 0 mL/min (70-130); Calcium 9.8 mg/dL (7.8-10.44); Carbon Dioxide 27 mmol/L (22-29); Chloride 103 mmol/L (98-107); Estimated GFR 120; Globulin 3.9 g/dL (2.4-3.5); Glucose 106 mg/dL (70-105); Potassium 3.9 mmol/L (3.5-5.1); Protein, Total 8.2 g/dL (6.0-8.3); Sodium 139 mmol/L (136-145)
[2023-02-25 11:52] LABS: Troponin I Less than 0.010 ng/mL (< 0.028)
[2023-02-25 11:55] LABS: Acetaminophen Less than 10 mcg/mL (10.0-30.0); Alcohol Less than 10.0 mg/dL (Less than 10); Salicylate Less than 8.0 mg/dL (15.0-30.0)
[2023-02-25] MEDS ORDERED: diphenhydrAMINE 50 MG/ML VIAL ONE (12:00)
[2023-02-25] MEDS ORDERED: Acetaminophen 500 MG TAB ONE (12:00)
[2023-02-25] MEDS ORDERED: Metoclopramide HCl 10 MG/2 ML VIAL ONE (12:00)
== END 2023-02-25 13:30 | disposition home or self-care (01) ==
LOC: ERS 10:50
DX: R51.9 Headache, unspecified (principal); R20.2 Paresthesia of skin; I10 Essential (primary) hypertension
CPT/HCPCS: 36415; 36416; 70450; 80053; 80307; 83735; 84484; 85025; 93005; 96365; 96375; J1200; J2765